=== PATIENT | male | born 1985 | race Caucasian/White ===

== ENCOUNTER → 2020-10-14 | Outpatient (CLI) | payer OTHER ==
[~2020-10-14] MED LIST: FLEXERIL 10 MG10 MG PO; NAPROSYN500 MG PO; PREDNISONE 50 M50 MG PO; VENTOLIN HFA 66.7 GM INH; VOLTAREN GEL 1 % TOP
== END ==
LOC: KOH-I 09:41
DX: M25.572 Pain in left ankle and joints of left foot (principal); M19.072 Primary osteoarthritis, left ankle and foot
CPT/HCPCS: 73610

== ENCOUNTER 2021-01-25 16:52 | Inpatient (IN) | payer OTHER ==
[~2021-01-25] VITALS: Ht 175.3 cm; Wt 113.9 kg
[~2021-01-25 16:52] MED LIST changes: -VENTOLIN HFA 66.7 GM INH
[2021-01-25 18:03] LABS: HEMOGLOBIN 15.1 gm/dl (14.0-17.5); RED BLOOD COUNT 4.99 M/UL (4.20-5.50); WHITE BLOOD COUNT 5.8 K/UL (4.5-11.0)
[2021-01-25 18:19] LABS: BUN/CREATININE RATIO 9 (0-10)
[2021-01-26 04:29] LABS: HEMOGLOBIN 13.9 gm/dl (14.0-17.5); RED BLOOD COUNT 4.67 M/UL (4.20-5.50)
[2021-01-26 04:50] LABS: BUN/CREATININE RATIO 10 (0-10)
[2021-01-26] MEDS ORDERED: VENTOLIN HFA 66.7 GM INH (12:50)
[2021-01-27 02:32] LABS: HEMOGLOBIN 13.7 gm/dl (14.0-17.5); RED BLOOD COUNT 4.62 M/UL (4.20-5.50)
[2021-01-27 02:38] LABS: WHITE BLOOD COUNT 8.8 K/UL (4.5-11.0)
[2021-01-27 02:41] LABS: BUN/CREATININE RATIO 11 (0-10)
[2021-01-27 09:14] LABS: HBSAG SCREEN Negative (Negative); HEP A AB, IGM Negative (Negative); HEP B CORE AB, IGM Negative (Negative); HEP C VIRUS AB <0.1 (0.0-0.9)
== END 2021-01-29 19:05 | disposition home or self-care (01) | DRG 177 ==
LOC: ER1 16:52 → PROG CARE 20:54 → CDU 20:54 → PROG CARE 23:12
PROVIDERS: Emergency Medicine; ADMIT Internal Medicine
PROC: XW033E5 Introduction of Remdesivir Anti-infective into Peripheral Vein, Percutaneous Approach, New Technology Group 5 (ICD-10-PCS; principal; 2021-01-25)
PROC: 8E0ZXY6 Isolation (ICD-10-PCS; 2021-01-25)
DX: U07.1 COVID-19 (principal); J12.82 Pneumonia due to coronavirus disease 2019; J96.01 Acute respiratory failure with hypoxia; J15.9 Unspecified bacterial pneumonia; J69.0 Pneumonitis due to inhalation of food and vomit; R11.2 Nausea with vomiting, unspecified; R19.7 Diarrhea, unspecified; D69.6 Thrombocytopenia, unspecified; E83.51 Hypocalcemia; E66.9 Obesity, unspecified; Z68.37 Body mass index [BMI] 37.0-37.9, adult; E83.39 Other disorders of phosphorus metabolism
CPT/HCPCS: 36415; 71045; 80048; 80053; 80074; 81001; 82550; 82553; 82728; 82962; 83605; 83615; 83735; 83874; 84100; 84484; 85025; 86140; 86900; 86901; 87040; 93005; 94760; 99285; J0456; J0696; J1100; J1650; J3480; J7030; Q9967